=== PATIENT | male | born 1940 | race Caucasian/White ===

== ENCOUNTER 2017-06-19 06:14 | Inpatient (IN) | payer MEDICARE, MEDICAID ==
[~2017-06-19] VITALS: Ht 180.3 cm; Wt 73.1 kg
[2017-06-19] MEDS ORDERED: ALBUTEROL SULFATE 2.5 MG/0.5 ML NEB SOLUTION NEB ONE (06:30)
[2017-06-19] MEDS ORDERED: IPRATROPIUM BROMIDE 0.5 MG/2.5 ML NEB SOLUTION NEB ONE (06:30)
[2017-06-19 06:34] LABS: ABG BASE EXCESS -2.2 mmol/L (-2.0-3.0); ABG CARBOXYHEMOGLOBIN 1.3 % (0.0-1.5); ABG HCO3 23.4 mmol/L (22.0-26.0); ABG METHEMOGLOBIN 0.3 % (0.0-1.5); ABG OXYGEN CONTENT 21.3 mL/dL (15.0-23.0); ABG OXYGEN SATURATION 96.1 % (95.0-98.0); ABG OXYHEMOGLOBIN 94.6 % (94.0-100.0); ABG PCO2 33 mmHg (35-45); ABG PH 7.444 (7.35-7.450); O2 DEVICE,BLOOD GAS BIPAP (ROOM AIR); PO2, ARTERIAL BG 76.1 mmHg (66.0-74.0); SITE, BLOOD GAS RT RADIAL; SOURCE, BLOOD GAS ARTERIAL; TEMPERATURE, FAHRENHEIT, BG 98.7 FAHREN (96.0-98.6)
[2017-06-19 06:38] LABS: GLUCOSE,POINT OF CARE 129 MG/DL (70-110)
[2017-06-19 06:53] LABS: BASOPHILS % (AUTO) 0.1 % (0.0-2.0); EOSINOPHILS % (AUTO) 0 % (1.0-6.0); HEMATOCRIT 48.2 % (41-53); HEMOGLOBIN 16.3 g/dL (13.5-17.5); LYMPHOCYTES # (AUTO) 0.4 K/uL (1.0-4.8); LYMPHOCYTES % (AUTO) 3.7 % (22.0-44.0); MEAN CORPUSCULAR HEMOGLOBIN 31.2 pg (26.0-34.0); MEAN CORPUSCULAR HGB CONC 33.8 G/dL (31.0-37.0); MEAN CORPUSCULAR VOLUME 92 fL (80-100); MONOCYTES # (AUTO) 0.7 K/uL (0.1-1.0); MONOCYTES % (AUTO) 5.7 % (2.0-9.0); NEUTROPHILS # (AUTO) 10.8 K/uL (1.8-7.7); PLATELET COUNT (AUTO) 228 K/uL (150-450); RED BLOOD CELL COUNT(AUTO) 5.23 MIL/uL (4.50-5.90); RED CELL DISTRIBUTION WIDTH 13.5 % (11.5-14.5)
[2017-06-19 06:54] LABS: NEUTROPHILS % (AUTO) 90.5 % (40.0-70.0)
[2017-06-19 06:58] LABS: ANION GAP 11 mmol/L (8-16); CALCIUM, TOTAL 8.6 mg/dL (8.8-10.5); CARBON DIOXIDE 28 mmol/L (22-29); CHLORIDE 105 mmol/L (98-107); CREATININE 1.26 mg/dL (0.60-1.30); GLOMERULAR FILTR. RATE CALC 56 mL/min (>60); GLUCOSE,RANDOM 157 mg/dL (70-110); POTASSIUM 4.6 mmol/L (3.5-5.1); SODIUM SERUM 144 mmol/L (136-145); UREA NITROGEN, BLOOD 28 mg/dL (7-18)
[2017-06-19] MEDS ORDERED: CefTRIAXone SODIUM 1 GM in DEXTROSE 5%-WATER 10 ML IV ONE (07:00)
[2017-06-19] MEDS ORDERED: AZITHROMYCIN 500 MG/NS 250 ML IV ONE (07:00)
[2017-06-19] MEDS ORDERED: ACETAMINOPHEN 1000 MG/ISO-OSM 100 ML IV ONE (07:00)
[2017-06-19 07:20] LABS: B-TYPE NATRIURETIC PEPTIDE 8 pg/mL (0-100)
[2017-06-19 07:25] LABS: ALANINE AMINOTRANSFERASE 23 U/L (12-78); ALBUMIN 3.3 g/dL (3.4-5.0); ALKALINE PHOSPHATASE 108 U/L (46-116); ASPARTATE AMINOTRANSFERASE 16 U/L (15-37); BILIRUBIN,TOTAL 0.7 mg/dL (0.1-1.0); CREATINE KINASE MB 0.8 ng/mL (0-5); CREATINE KINASE, TOTAL 118 U/L (39-308); TOTAL PROTEIN, SERUM 7.1 g/dL (6.4-8.2)
[2017-06-19 08:02] LABS: LACTIC ACID 4.6 mmol/L (0.4-2.0)
[2017-06-19] MEDS ORDERED: SODIUM CHLORIDE 0.9% 1,000 ML IV ONE ×4 (08:15→08:30)
[2017-06-19 08:28] LABS: APPEARANCE,URINE CLOUDY (CLEAR); GLUCOSE, URINE (UA) NEGATIVE (NEGATIVE); KETONES,URINE 15 mg/dL (NEGATIVE); LEUKOCYTE ESTERASE ,URINE TRACE (NEGATIVE); NITRATE,URINE POSITIVE (NEGATIVE); OCCULT BLOOD,URINE MODERATE (NEGATIVE); PH,URINE 5.5 (5.0-8.0); PROTEIN,URINE NEGATIVE (NEGATIVE); UROBILINOGEN,URINE 0.2 mg/dL (<=1.0)
[2017-06-19 08:31] LABS: BILIRUBIN,URINE PRELIM. POSITIVE (NEGATIVE)
[2017-06-19] MEDS ORDERED: 0.9% SODIUM CHLORIDE 10 ML SYRINGE IVP PRN (08:45)
[2017-06-19] MEDS ORDERED: ACETAMINOPHEN 325 MG TABLET PO PRN ×2 (08:45→12:30)
[2017-06-19 08:46] LABS: BACTERIA,URINE Many /HPF (None Seen)
[2017-06-19 08:47] LABS: SQUAMOUS EPITHELIAL CELL,UR Few /LPF (None Seen)
[2017-06-19 08:48] LABS: AMORPHOUS SEDIMENT,UR Few /LPF (None Seen)
[2017-06-19 08:49] LABS: MUCUS,URINE Few LPF (None Seen)
[2017-06-19] MEDS ORDERED: MORPHINE SULFATE 2 MG/ML SYRINGE IVP PRN (12:30)
[2017-06-19] MEDS ORDERED: ZOLPIDEM TARTRATE 5 MG TABLET PO PRN (12:30)
[2017-06-19] MEDS ORDERED: ALBUTEROL SULFATE 2.5 MG/0.5 ML NEB SOLUTION NEB PRN ×2 (12:30)
[2017-06-19] MEDS ORDERED: IPRATROPIUM BROMIDE 0.5 MG/2.5 ML NEB SOLUTION NEB PRN ×2 (12:30)
[2017-06-19] MEDS ORDERED: BISACODYL 10 MG RECTAL RECTAL SUPPOSITORY PR PRN (12:30)
[2017-06-19] MEDS ORDERED: HYDROCODONE/ACETAMINOPHEN 5-325 MG TABLET PO PRN (12:30)
[2017-06-19] MEDS ORDERED: MAGNESIUM HYDROXIDE SUSPENSION 30 ML UDCUP PO PRN (12:30)
[2017-06-19] MEDS ORDERED: ONDANSETRON HCL 4 MG/2 ML VIAL IVP PRN (12:30)
[2017-06-19 12:34] LABS: INFLUENZA TYPE A NEGATIVE FOR TYPE A (NEGATIVE); INFLUENZA TYPE B NEGATIVE FOR TYPE B (NEGATIVE)
[2017-06-19] MEDS ORDERED: IOVERSOL 350 MG/ML 150 ML VIAL ONE (13:10)
[2017-06-19 17:00] VITALS: BP 110/65
[2017-06-19] MEDS: HEPARIN SODIUM,PORCINE 5,000 UNITS/ML VIAL SQ SCH ×2 (17:10→23:41)
[2017-06-19 19:08] VITALS: BP 91/51
[2017-06-19] MEDS ORDERED: SODIUM CHLORIDE 0.9% 250 ML IV ONE (20:42)
[2017-06-19] MEDS: DOCUSATE SODIUM 100 MG CAPSULE PO SCH (20:43)
[2017-06-19] MEDS: LEVOFLOXACIN 750 MG/D5% WATER 150 ML IV SCH (20:47)
[2017-06-19 23:36] VITALS: BP 110/90
[2017-06-20 05:01] VITALS: BP 120/47
[2017-06-20 06:57] LABS: BASOPHILS % (AUTO) 0.2 % (0.0-2.0); EOSINOPHILS % (AUTO) 0.3 % (1.0-6.0); HEMATOCRIT 36.7 % (41-53); HEMOGLOBIN 12.6 g/dL (13.5-17.5); LYMPHOCYTES # (AUTO) 1.1 K/uL (1.0-4.8); LYMPHOCYTES % (AUTO) 9.1 % (22.0-44.0); MEAN CORPUSCULAR HEMOGLOBIN 31.6 pg (26.0-34.0); MEAN CORPUSCULAR HGB CONC 34.2 G/dL (31.0-37.0); MEAN CORPUSCULAR VOLUME 93 fL (80-100); MONOCYTES % (AUTO) 8.3 % (2.0-9.0); NEUTROPHILS % (AUTO) 82.1 % (40.0-70.0); PLATELET COUNT (AUTO) 131 K/uL (150-450); RED BLOOD CELL COUNT(AUTO) 3.97 MIL/uL (4.50-5.90); RED CELL DISTRIBUTION WIDTH 13.9 % (11.5-14.5)
[2017-06-20 07:30] VITALS: BP 114/58
[2017-06-20 07:50] LABS: ANION GAP 8 mmol/L (8-16); CALCIUM, TOTAL 8.2 mg/dL (8.8-10.5); CARBON DIOXIDE 27 mmol/L (22-29); CHLORIDE 109 mmol/L (98-107); CREATININE 0.85 mg/dL (0.60-1.30); GLOMERULAR FILTR. RATE CALC > 60 mL/min (>60); GLUCOSE,RANDOM 94 mg/dL (70-110); POTASSIUM 4.1 mmol/L (3.5-5.1); SODIUM SERUM 144 mmol/L (136-145); UREA NITROGEN, BLOOD 29 mg/dL (7-18)
[2017-06-20] MEDS: PANTOPRAZOLE SODIUM 40 MG DR TABLET PO SCH (08:30)
[2017-06-20] MEDS: HEPARIN SODIUM,PORCINE 5,000 UNITS/ML VIAL SQ SCH (08:30)
[2017-06-20] MEDS: DOCUSATE SODIUM 100 MG CAPSULE PO SCH ×2 (08:30→20:07)
[2017-06-20 11:18] VITALS: BP 103/74
[2017-06-20 14:32] VITALS: BP 126/62
[2017-06-20 20:07] VITALS: BP 115/61
[2017-06-20] MEDS: LEVOFLOXACIN 750 MG/D5% WATER 150 ML IV SCH (20:07)
[2017-06-21] VITALS (7 sets, daily range): BP systolic 103–156; BP diastolic 52–109
[2017-06-21] MEDS: PANTOPRAZOLE SODIUM 40 MG DR TABLET PO SCH (08:06)
[2017-06-21] MEDS: DOCUSATE SODIUM 100 MG CAPSULE PO SCH ×2 (08:06→21:12)
[2017-06-21 08:27] LABS: BASOPHILS % (AUTO) 0.2 % (0.0-2.0); EOSINOPHILS % (AUTO) 1.5 % (1.0-6.0); HEMATOCRIT 33.4 % (41-53); HEMOGLOBIN 11.4 g/dL (13.5-17.5); LYMPHOCYTES # (AUTO) 1.2 K/uL (1.0-4.8); LYMPHOCYTES % (AUTO) 12.7 % (22.0-44.0); MEAN CORPUSCULAR HEMOGLOBIN 31.1 pg (26.0-34.0); MEAN CORPUSCULAR VOLUME 91 fL (80-100); MONOCYTES # (AUTO) 0.7 K/uL (0.1-1.0); MONOCYTES % (AUTO) 7.6 % (2.0-9.0); NEUTROPHILS # (AUTO) 7.1 K/uL (1.8-7.7); PLATELET COUNT (AUTO) 127 K/uL (150-450); RED BLOOD CELL COUNT(AUTO) 3.66 MIL/uL (4.50-5.90); RED CELL DISTRIBUTION WIDTH 13.8 % (11.5-14.5)
[2017-06-21 08:43] LABS: ANION GAP 7 mmol/L (8-16); CARBON DIOXIDE 27 mmol/L (22-29); CHLORIDE 106 mmol/L (98-107); CREATININE 0.72 mg/dL (0.60-1.30); GLOMERULAR FILTR. RATE CALC > 60 mL/min (>60); GLUCOSE,RANDOM 94 mg/dL (70-110); POTASSIUM 3.6 mmol/L (3.5-5.1); SODIUM SERUM 140 mmol/L (136-145); UREA NITROGEN, BLOOD 25 mg/dL (7-18)
[2017-06-21] MEDS: LEVOFLOXACIN 750 MG/D5% WATER 150 ML IV SCH (21:12)
[2017-06-22 03:45] VITALS: BP 137/55
[2017-06-22 06:33] LABS: BASOPHILS % (AUTO) 0.2 % (0.0-2.0); EOSINOPHILS % (AUTO) 1.6 % (1.0-6.0); HEMATOCRIT 35.1 % (41-53); HEMOGLOBIN 12.1 g/dL (13.5-17.5); LYMPHOCYTES # (AUTO) 1.1 K/uL (1.0-4.8); MEAN CORPUSCULAR HEMOGLOBIN 31.5 pg (26.0-34.0); MEAN CORPUSCULAR HGB CONC 34.6 G/dL (31.0-37.0); MEAN CORPUSCULAR VOLUME 91 fL (80-100); MONOCYTES # (AUTO) 0.7 K/uL (0.1-1.0); NEUTROPHILS # (AUTO) 8.2 K/uL (1.8-7.7); NEUTROPHILS % (AUTO) 80.2 % (40.0-70.0); PLATELET COUNT (AUTO) 155 K/uL (150-450); RED BLOOD CELL COUNT(AUTO) 3.84 MIL/uL (4.50-5.90); RED CELL DISTRIBUTION WIDTH 13.6 % (11.5-14.5)
[2017-06-22 06:41] LABS: ANION GAP 6 mmol/L (8-16); CALCIUM, TOTAL 8.1 mg/dL (8.8-10.5); CARBON DIOXIDE 28 mmol/L (22-29); CHLORIDE 108 mmol/L (98-107); CREATININE 0.72 mg/dL (0.60-1.30); GLOMERULAR FILTR. RATE CALC > 60 mL/min (>60); GLUCOSE,RANDOM 104 mg/dL (70-110); POTASSIUM 3.6 mmol/L (3.5-5.1); SODIUM SERUM 142 mmol/L (136-145); UREA NITROGEN, BLOOD 20 mg/dL (7-18)
[2017-06-22 08:12] VITALS: BP 126/64
[2017-06-22] MEDS: DOCUSATE SODIUM 100 MG CAPSULE PO SCH ×2 (08:13→20:57)
[2017-06-22] MEDS: PANTOPRAZOLE SODIUM 40 MG DR TABLET PO SCH (08:13)
[2017-06-22 11:30] VITALS: BP 134/91
[2017-06-22] MEDS ORDERED: MEMA5 PO (14:48)
[2017-06-22] MEDS ORDERED: OLAN5TAB40 PO (14:48)
[2017-06-22] MEDS ORDERED: DONE5TAB5 PO (14:48)
[2017-06-22] MEDS ORDERED: SIMV-259 PO (14:49)
[2017-06-22] MEDS ORDERED: NS1000 IV (14:50)
[2017-06-22] MEDS ORDERED: AMLO2.5T PO (14:51)
[2017-06-22] MEDS ORDERED: LEVO500 PO (14:52)
[2017-06-22 15:49] VITALS: BP 138/79
[2017-06-22 19:56] VITALS: BP 141/71
[2017-06-22] MEDS: LEVOFLOXACIN 750 MG/D5% WATER 150 ML IV SCH (20:57)
[2017-06-23] VITALS (7 sets, daily range): BP systolic 112–142; BP diastolic 50–82
[2017-06-23] MEDS: PANTOPRAZOLE SODIUM 40 MG DR TABLET PO SCH (08:36)
[2017-06-23] MEDS: DOCUSATE SODIUM 100 MG CAPSULE PO SCH ×2 (08:36→20:00)
[2017-06-23] MEDS ORDERED: LEVO500T2 PO (17:00)
[2017-06-23] MEDS ORDERED: AMLO2.5T29 PO (17:00)
[2017-06-23] MEDS ORDERED: DONE5TAB33 PO (17:01)
[2017-06-23] MEDS ORDERED: MEMA5 PO (17:02)
[2017-06-23] MEDS ORDERED: OLAN5TAB2 PO (17:02)
[2017-06-23] MEDS ORDERED: SIMV5TAB6 PO (17:03)
[2017-06-23] MEDS: LEVOFLOXACIN 750 MG/D5% WATER 150 ML IV SCH (20:00)
[2017-06-24 05:34] VITALS: BP 137/69
[2017-06-24] MEDS: DOCUSATE SODIUM 100 MG CAPSULE PO SCH (07:35)
[2017-06-24] MEDS: PANTOPRAZOLE SODIUM 40 MG DR TABLET PO SCH (07:35)
[2017-06-24 07:40] VITALS: BP 106/31
== END 2017-06-24 09:20 | disposition home or self-care (01) | DRG 871 ==
LOC: EDBD 06:16 → EMS 06:16 → 5S 13:58 → ICU 13:58
PROVIDERS: ADMIT Internal Medicine; ATTEND Internal Medicine
PROC: 5A09357 Assistance with Respiratory Ventilation, Less than 24 Consecutive Hours, Continuous Positive Airway Pressure (ICD-10-PCS; principal; 2017-06-19)
DX: A41.9 Sepsis, unspecified organism (principal); J96.91 Respiratory failure, unspecified with hypoxia; J18.9 Pneumonia, unspecified organism; G93.41 Metabolic encephalopathy; N39.0 Urinary tract infection, site not specified; F03.90 Unspecified dementia, unspecified severity, without behavioral disturbance, psychotic disturbance, mood disturbance, and anxiety; B96.1 Klebsiella pneumoniae [K. pneumoniae] as the cause of diseases classified elsewhere
CPT/HCPCS: 71260; 72193; 74160; 82805; 82962; 83605; 87040; 87086; 87804; 93005; 93970; 94640; 94660; 96361; 96374; 96375; 97116; 97162; 97166; 97530; 99291; J0131; J0456; J0696; J1644; J1956; J7050; J7060

== ENCOUNTER 2017-09-14 13:34 | Inpatient (IN) | payer MEDICAID, MEDICARE ==
[~2017-09-14] VITALS: Ht 185.4 cm; Wt 57.1 kg
[~2017-09-14 13:34] MED LIST: AMLO2.5T29 PO; DONE5TAB33 PO; DONE5TAB5 PO; LEVO500T2 PO; LOSA25TA21 PO; MEMA10TA11 PO; MEMA5 PO; METO-558 PO; OLAN5TAB2 PO; OLAN5TAB40 PO; SIMV5TAB6 PO
[2017-09-14] MEDS ORDERED: METO25XL PO (15:40)
[2017-09-14] MEDS ORDERED: MEMA5 PO (15:40)
[2017-09-14] MEDS ORDERED: AMLO-511 PO (15:40)
[2017-09-14] MEDS ORDERED: PERTUSS(ACELL),DIPH,TET VAC/PF 0.5 ML VIAL IM ONE (15:45)
[2017-09-14] MEDS ORDERED: SODIUM CHLORIDE 0.9% 1,000 ML IV ONE (18:00)
[2017-09-14 18:07] LABS: GLUCOSE,POINT OF CARE 62 MG/DL (70-110)
[2017-09-14 18:24] LABS: BASOPHILS % (AUTO) 0.5 % (0.0-2.0); EOSINOPHILS % (AUTO) 0.5 % (1.0-6.0); HEMATOCRIT 47.2 % (41-53); LYMPHOCYTES # (AUTO) 0.8 K/uL (1.0-4.8); LYMPHOCYTES % (AUTO) 6.8 % (22.0-44.0); MEAN CORPUSCULAR HEMOGLOBIN 31.6 pg (26.0-34.0); MEAN CORPUSCULAR HGB CONC 33.8 G/dL (31.0-37.0); MEAN CORPUSCULAR VOLUME 94 fL (80-100); MONOCYTES # (AUTO) 0.8 K/uL (0.1-1.0); MONOCYTES % (AUTO) 6.8 % (2.0-9.0); NEUTROPHILS # (AUTO) 9.6 K/uL (1.8-7.7); PLATELET COUNT (AUTO) 217 K/uL (150-450); RED BLOOD CELL COUNT(AUTO) 5.05 MIL/uL (4.50-5.90); RED CELL DISTRIBUTION WIDTH 13.7 % (11.5-14.5)
[2017-09-14 18:32] LABS: NEUTROPHILS % (AUTO) 85.4 % (40.0-70.0)
[2017-09-14 18:36] LABS: ANION GAP 6 mmol/L (8-16); CALCIUM, TOTAL 9.4 mg/dL (8.8-10.5); CARBON DIOXIDE 31 mmol/L (22-29); CHLORIDE 103 mmol/L (98-107); CREATININE 0.98 mg/dL (0.60-1.30); GLOMERULAR FILTR. RATE CALC > 60 mL/min (>60); GLUCOSE,RANDOM 93 mg/dL (70-110); POTASSIUM 4.9 mmol/L (3.5-5.1); SODIUM SERUM 140 mmol/L (136-145); UREA NITROGEN, BLOOD 23 mg/dL (7-18)
[2017-09-14 18:42] LABS: ALANINE AMINOTRANSFERASE 16 U/L (12-78); ALBUMIN 3.3 g/dL (3.4-5.0); ALKALINE PHOSPHATASE 139 U/L (46-116); ASPARTATE AMINOTRANSFERASE 12 U/L (15-37); BILIRUBIN,TOTAL 0.6 mg/dL (0.1-1.0); TOTAL PROTEIN, SERUM 7.2 g/dL (6.4-8.2)
[2017-09-14 18:50] LABS: APPEARANCE,URINE TURBID (CLEAR); GLUCOSE, URINE (UA) NEGATIVE (NEGATIVE); KETONES,URINE 15 mg/dL (NEGATIVE); LEUKOCYTE ESTERASE ,URINE LARGE (NEGATIVE); NITRATE,URINE NEGATIVE (NEGATIVE); OCCULT BLOOD,URINE LARGE (NEGATIVE); PH,URINE 5.5 (5.0-8.0); PROTEIN,URINE POS 1+ (NEGATIVE)
[2017-09-14 19:22] LABS: GLUCOSE,POINT OF CARE 89 MG/DL (70-110)
[2017-09-14 19:24] LABS: BILIRUBIN,URINE PRELIM. POSITIVE (NEGATIVE)
[2017-09-14 19:36] LABS: BACTERIA,URINE Many /HPF (None Seen); WBC,URINE >100 /HPF (0-5)
[2017-09-14 19:37] LABS: SQUAMOUS EPITHELIAL CELL,UR Few /LPF (None Seen)
[2017-09-14 19:38] LABS: RENAL EPITHELIAL CELLS,URINE Rare /LPF (None Seen)
[2017-09-14] MEDS ORDERED: CefTRIAXone SODIUM 1 GM in DEXTROSE 5%-WATER 10 ML IV ONE (19:45)
[2017-09-14] MEDS ORDERED: ONDANSETRON HCL 4 MG/2 ML VIAL IVP PRN ×2 (19:45→23:45)
[2017-09-14] MEDS ORDERED: ACETAMINOPHEN 325 MG TABLET PO PRN (19:45)
[2017-09-14 21:11] VITALS: BP 116/45
[2017-09-14 23:43] VITALS: BP 100/63
[2017-09-14] MEDS ORDERED: 0.9% SODIUM CHLORIDE 10 ML SYRINGE IVP PRN (23:45)
[2017-09-14] MEDS ORDERED: ZOLPIDEM TARTRATE 5 MG TABLET PO PRN (23:45)
[2017-09-14] MEDS: METOPROLOL SUCCINATE 25 MG ER TABLET PO SCH (23:45)
[2017-09-14] MEDS: LOSARTAN POTASSIUM 25 MG TABLET PO SCH (23:45)
[2017-09-15] MEDS: OLANZapine 5 MG RAPDIS TABLET PO SCH ×3 (00:32→22:03)
[2017-09-15] MEDS: MEMANTINE HCL 5 MG TABLET PO SCH ×3 (00:32→22:02)
[2017-09-15] MEDS: HEPARIN SODIUM,PORCINE 5,000 UNITS/ML VIAL SQ SCH ×4 (00:32→23:24)
[2017-09-15 04:49] VITALS: BP 115/89
[2017-09-15 07:02] LABS: BASOPHILS % (AUTO) 0.3 % (0.0-2.0); EOSINOPHILS % (AUTO) 1.9 % (1.0-6.0); HEMATOCRIT 38.4 % (41-53); HEMOGLOBIN 13.4 g/dL (13.5-17.5); LYMPHOCYTES # (AUTO) 1.4 K/uL (1.0-4.8); LYMPHOCYTES % (AUTO) 16.2 % (22.0-44.0); MEAN CORPUSCULAR HEMOGLOBIN 32.3 pg (26.0-34.0); MEAN CORPUSCULAR HGB CONC 34.7 G/dL (31.0-37.0); MEAN CORPUSCULAR VOLUME 93 fL (80-100); MONOCYTES # (AUTO) 0.8 K/uL (0.1-1.0); MONOCYTES % (AUTO) 8.8 % (2.0-9.0); NEUTROPHILS # (AUTO) 6.3 K/uL (1.8-7.7); NEUTROPHILS % (AUTO) 72.8 % (40.0-70.0); PLATELET COUNT (AUTO) 179 K/uL (150-450); RED BLOOD CELL COUNT(AUTO) 4.14 MIL/uL (4.50-5.90); RED CELL DISTRIBUTION WIDTH 13.4 % (11.5-14.5)
[2017-09-15 07:59] VITALS: BP 101/59
[2017-09-15] MEDS: AmLODIPine BESYLATE 5 MG TABLET PO SCH (09:00)
[2017-09-15] MEDS: METOPROLOL SUCCINATE 25 MG ER TABLET PO SCH ×2 (09:00→22:02)
[2017-09-15] MEDS: LOSARTAN POTASSIUM 25 MG TABLET PO SCH ×2 (09:00→22:02)
[2017-09-15] MEDS: SODIUM CHLORIDE 0.9% 1,000 ML IV SCH ×2 (09:17→22:07)
[2017-09-15] MEDS: DONEPEZIL HCL 5 MG TABLET PO SCH (09:18)
[2017-09-15] MEDS: PANTOPRAZOLE SODIUM 40 MG DR TABLET PO SCH (09:18)
[2017-09-15 10:54] LABS: ANION GAP 6 mmol/L (8-16); CALCIUM, TOTAL 8.6 mg/dL (8.8-10.5); CARBON DIOXIDE 30 mmol/L (22-29); CHLORIDE 107 mmol/L (98-107); GLOMERULAR FILTR. RATE CALC > 60 mL/min (>60); GLUCOSE,RANDOM 90 mg/dL (70-110); SODIUM SERUM 143 mmol/L (136-145)
[2017-09-15 11:12] LABS: UREA NITROGEN, BLOOD 19 mg/dL (7-18)
[2017-09-15] MEDS ORDERED: MAGNESIUM SULFATE 2 GM in DEXTROSE 5%-WATER 50 ML IV PRN (11:15)
[2017-09-15] MEDS ORDERED: MAGNESIUM SULFATE 4 GM/WATER 100 ML IV PRN (11:15)
[2017-09-15] MEDS ORDERED: MAGNESIUM OXIDE 400 MG TABLET PO PRN (11:15)
[2017-09-15] MEDS ORDERED: POTASSIUM CHLORIDE 20 MEQ ER TABLET PO PRN (11:30)
[2017-09-15] MEDS ORDERED: POTASSIUM CHL 10 MEQ/WATER 50 ML IV PRN (11:30)
[2017-09-15 12:00] VITALS: BP 110/59
[2017-09-15 12:26] LABS: ALBUMIN 2.6 g/dL (3.4-5.0)
[2017-09-15 17:17] VITALS: BP 113/68
[2017-09-15 19:40] VITALS: BP 136/97
[2017-09-15] MEDS: CefTRIAXone SODIUM 1 GM in DEXTROSE 5%-WATER 10 ML IV SCH (22:02)
[2017-09-15 23:30] VITALS: BP 134/82
[2017-09-16 04:58] VITALS: BP 150/84
[2017-09-16 05:48] LABS: BASOPHILS % (AUTO) 0.5 % (0.0-2.0); EOSINOPHILS % (AUTO) 5.2 % (1.0-6.0); HEMATOCRIT 40.7 % (41-53); HEMOGLOBIN 14.3 g/dL (13.5-17.5); LYMPHOCYTES # (AUTO) 1.3 K/uL (1.0-4.8); LYMPHOCYTES % (AUTO) 25.1 % (22.0-44.0); MEAN CORPUSCULAR HEMOGLOBIN 32.7 pg (26.0-34.0); MEAN CORPUSCULAR VOLUME 93 fL (80-100); MONOCYTES # (AUTO) 0.4 K/uL (0.1-1.0); MONOCYTES % (AUTO) 8.4 % (2.0-9.0); NEUTROPHILS # (AUTO) 3.2 K/uL (1.8-7.7); NEUTROPHILS % (AUTO) 60.8 % (40.0-70.0); PLATELET COUNT (AUTO) 168 K/uL (150-450); RED BLOOD CELL COUNT(AUTO) 4.37 MIL/uL (4.50-5.90); RED CELL DISTRIBUTION WIDTH 13.6 % (11.5-14.5)
[2017-09-16 06:06] LABS: ANION GAP 4 mmol/L (8-16); CALCIUM, TOTAL 8.5 mg/dL (8.8-10.5); CARBON DIOXIDE 30 mmol/L (22-29); CHLORIDE 108 mmol/L (98-107); CREATININE 0.85 mg/dL (0.60-1.30); GLOMERULAR FILTR. RATE CALC > 60 mL/min (>60); GLUCOSE,RANDOM 92 mg/dL (70-110); SODIUM SERUM 142 mmol/L (136-145); UREA NITROGEN, BLOOD 13 mg/dL (7-18)
[2017-09-16 08:10] VITALS: BP 120/70
[2017-09-16] MEDS: PANTOPRAZOLE SODIUM 40 MG DR TABLET PO SCH (08:56)
[2017-09-16] MEDS: AmLODIPine BESYLATE 5 MG TABLET PO SCH (08:56)
[2017-09-16] MEDS: MEMANTINE HCL 5 MG TABLET PO SCH ×2 (08:56→20:07)
[2017-09-16] MEDS: METOPROLOL SUCCINATE 25 MG ER TABLET PO SCH ×2 (08:56→20:06)
[2017-09-16] MEDS: HEPARIN SODIUM,PORCINE 5,000 UNITS/ML VIAL SQ SCH ×2 (08:56→16:00)
[2017-09-16] MEDS: LOSARTAN POTASSIUM 25 MG TABLET PO SCH ×2 (08:56→20:07)
[2017-09-16] MEDS: DONEPEZIL HCL 5 MG TABLET PO SCH (08:57)
[2017-09-16] MEDS: OLANZapine 5 MG RAPDIS TABLET PO SCH ×2 (08:57→20:07)
[2017-09-16 12:47] VITALS: BP 106/67
[2017-09-16 16:04] VITALS: BP 99/59
[2017-09-16 19:20] VITALS: BP 127/80
[2017-09-16] MEDS: CefTRIAXone SODIUM 1 GM in DEXTROSE 5%-WATER 10 ML IV SCH (20:06)
[2017-09-16 23:03] VITALS: BP 98/57
[2017-09-17] MEDS: HEPARIN SODIUM,PORCINE 5,000 UNITS/ML VIAL SQ SCH ×3 (00:35→16:01)
[2017-09-17 05:01] VITALS: BP 90/55
[2017-09-17 06:54] LABS: BASOPHILS % (AUTO) 0.8 % (0.0-2.0); EOSINOPHILS % (AUTO) 6.9 % (1.0-6.0); HEMATOCRIT 36.1 % (41-53); HEMOGLOBIN 12.5 g/dL (13.5-17.5); LYMPHOCYTES # (AUTO) 1.6 K/uL (1.0-4.8); LYMPHOCYTES % (AUTO) 22.2 % (22.0-44.0); MEAN CORPUSCULAR HEMOGLOBIN 32.1 pg (26.0-34.0); MEAN CORPUSCULAR HGB CONC 34.6 G/dL (31.0-37.0); MEAN CORPUSCULAR VOLUME 93 fL (80-100); MONOCYTES # (AUTO) 0.7 K/uL (0.1-1.0); MONOCYTES % (AUTO) 9.1 % (2.0-9.0); NEUTROPHILS # (AUTO) 4.4 K/uL (1.8-7.7); PLATELET COUNT (AUTO) 183 K/uL (150-450); RED BLOOD CELL COUNT(AUTO) 3.89 MIL/uL (4.50-5.90); RED CELL DISTRIBUTION WIDTH 13.7 % (11.5-14.5)
[2017-09-17 07:11] LABS: ANION GAP 5 mmol/L (8-16); CALCIUM, TOTAL 8.3 mg/dL (8.8-10.5); CARBON DIOXIDE 30 mmol/L (22-29); CHLORIDE 108 mmol/L (98-107); CREATININE 0.79 mg/dL (0.60-1.30); GLOMERULAR FILTR. RATE CALC > 60 mL/min (>60); GLUCOSE,RANDOM 91 mg/dL (70-110); POTASSIUM 3.8 mmol/L (3.5-5.1); SODIUM SERUM 143 mmol/L (136-145); UREA NITROGEN, BLOOD 13 mg/dL (7-18)
[2017-09-17 07:53] VITALS: BP 102/68
[2017-09-17] MEDS: MEMANTINE HCL 5 MG TABLET PO SCH (08:27)
[2017-09-17] MEDS: AmLODIPine BESYLATE 5 MG TABLET PO SCH (08:27)
[2017-09-17] MEDS: OLANZapine 5 MG RAPDIS TABLET PO SCH (08:27)
[2017-09-17] MEDS: LOSARTAN POTASSIUM 25 MG TABLET PO SCH (08:27)
[2017-09-17] MEDS: DONEPEZIL HCL 5 MG TABLET PO SCH (08:27)
[2017-09-17] MEDS: PANTOPRAZOLE SODIUM 40 MG DR TABLET PO SCH (08:27)
[2017-09-17] MEDS: METOPROLOL SUCCINATE 25 MG ER TABLET PO SCH (08:27)
[2017-09-17 11:30] VITALS: BP 106/67
[2017-09-17 16:01] VITALS: BP 110/67
== END 2017-09-17 19:00 | DRG 605 ==
LOC: EMS 13:35 → 6N 20:00
PROVIDERS: ADMIT Internal Medicine; ATTEND Internal Medicine
PROC: 3E0234Z Introduction of Serum, Toxoid and Vaccine into Muscle, Percutaneous Approach (ICD-10-PCS; principal; 2017-09-14)
PROC: 0HQ0XZZ Repair Scalp Skin, External Approach (ICD-10-PCS; 2017-09-14)
DX: S01.01XA Laceration without foreign body of scalp, initial encounter (principal); N39.0 Urinary tract infection, site not specified; F03.90 Unspecified dementia, unspecified severity, without behavioral disturbance, psychotic disturbance, mood disturbance, and anxiety; E78.00 Pure hypercholesterolemia, unspecified; I10 Essential (primary) hypertension; W18.30XA Fall on same level, unspecified, initial encounter; Z79.899 Other long term (current) drug therapy; Z23 Encounter for immunization; Y93.89 Activity, other specified; Y92.89 Other specified places as the place of occurrence of the external cause; Y99.8 Other external cause status
CPT/HCPCS: 12002; 51701; 70450; 72125; 83735; 87086; 90471; 90715; 93005; 96365; 97116; 97162; 97166; 97530; 99285; J0696; J1644; J7030; J7060